=== PATIENT | female | born 2000 | race Caucasian/White ===

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

== ENCOUNTER 2023-01-12 16:24 | Outpatient (REF) | payer BC, MEDICAID, SELFPAY ==
[2023-01-14 15:06] LABS: Chlamydia Result Negative (Negative); GC Result Negative (Negative)
== END 2023-01-12 16:25 | disposition home or self-care (01) ==
LOC: LBN 16:24
PROVIDERS: PCP Student in an Organized Health Care Education/Training Program; Visit Provider Advanced Practice Midwife
DX: N94.89 Other specified conditions associated with female genital organs and menstrual cycle (principal); B37.31 Acute candidiasis of vulva and vagina
CPT/HCPCS: 87491; 87591; 87480; 87510; 87660

== ENCOUNTER 2023-10-13 15:43 | Emergency (ER) | payer OTHER, SELFPAY ==
[2023-10-13 15:44] VITALS: BP 142/97; PULSE 93; RESP 16; TEMP 36.3; O2SAT 98
--- NOTE | 2023-10-13 15:45 | ED.GENADUL_ITS ---
Discharge Plan Disposition Patient Disposition: Home Discharge Details Clinical Impression: Acute right ankle pain Primary Care Provider: Unknown,Unknown ED Provider: Shiraz Carrillo Home Meds and New Rx's Prescriptions: Continued L norgest/e.estradiol-e.estrad 0.15 mg-30 mcg (84)/10 mcg (7) tablets,dose pack,3 month 1 tab PO Q24H Qty: 182 3RF sertraline 50 mg tablet See Rx Instructions .ROUTE .COMPLEX Qty: 45 3RF Dose Instruction: TAKE ONE AND ONE-HALF TABLETS BY MOUTH EVERY DAY Rx Instructions: TAKE ONE AND ONE-HALF TABLETS BY MOUTH EVERY DAY glycopyrrolate 1 mg tablet 2 mg PO DAILY Patient Comments: TAKE ONE TABLET BY MOUTH EVERY DAY FOR 7 DAYS; MAY INCREASE TO ONE TABLET BY MOUTH TWO TIMES A DAY AFTER Discharge Instructions Instructions: Ankle Sprain ED Additional Instructions: You were seen in the emergency department for your ankle pain. Your x-ray showed no sign of any fractures. As we discussed please rest your ankle and elevated for the next several days. Please ice your right ankle for 20 minutes on 20 and soft for the next day. You are receiving a work note. As we discussed if you cannot move your ankle if you develop any blue color changes in your foot or if you have any sudden increasing pain please return immediately to the emergency department. Otherwise please follow-up with your primary care provider next week as needed. As we discussed if you develop worsening pain next week you may or may not require an MRI to assess for any ligamentous injuries. You are receiving a walking boot. You may bear weight as tolerated on your right lower extremity. For your pain please take medications as follows: 1. Take acetaminophen (Tylenol), 1,000 mg (two 500 mg tabs) every 6 hours [2. Take ibuprofen (Advil), 400 mg every 6 hours.] Stand Alone Forms: Work Release Discharge Data Discharge Date/Time-TO BE ENTERED AT DEPARTURE: 10/13/23 17:29 HPI General Date/Time Provider Initiated Documentation: 10/13/23 15:45 . HPI Narrative: [facility] This is an overall very well-appearing afebrile not tachycardic 23-year-old female with a remote prior right ankle fracture with history physical and x-rays most consistent with right ankle sprain for which patient will receive instructions for RICE and weightbearing as tolerated in a walking boot per patient request. No pain out of proportion to suggest necrotizing soft tissue infection. No proximal tibial pain to suggest Maisonneuve injury. No midfoot instability to suggest Lisfranc injury. No lateral foot tenderness to suggest Winn fracture. Foot warm well-perfused I am not concerned for critical limb ischemia so do not feel that the patient requires a CT angiogram of her lower extremity. No fevers nor any significant erythema to suggest septic joint. No erythema to suggest cellulitis. No fluctuance to suggest abscess. Patient and I discussed return indications including any decreased circulation color changes in her foot or any significant increasing pain. We otherwise discussed primary care follow-up next week as needed. I advised her that she may or may not require an MRI if her symptoms did not steadily improve. She understood her return indications and was discharged with empiric trial of expectant outpatient management. HPI This is a previously healthy 23-year-old female up-to-date with immunizations arrived to the emergency department via private vehicle in the setting of right ankle pain. 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 She was outside at approximately 3 PM and she stepped in a divot in the play yard. She does note that 3 years ago she fractured her right ankle. She says that today she forcefully inverted her right ankle. She did not strike her head. She did not lose consciousness. She has not yet taken any analgesia. She denies any preceding chest pain syncope nausea vomiting dysuria and frequency. Exam General: Well-appearing in no acute distress speaking in complete sentences. Head: Normocephalic, atraumatic. Eye:[Pupils equal, round reactive to light.] Extraocular eye movements intact. No conjunctival injection. No scleral icterus. Ear, nose, mouth, throat: Grossly normal inspection. Normal voice, handling secretions normally. Neck: Trachea midline. Cardiovascular: Well-perfused distal extremities. Respiratory: Nonlabored respiration. Gastrointestinal: Nondistended abdomen. Musculoskeletal: Right foot warm well-perfused 2+ PT and DP pulses. Cap refill less than 2 seconds in the right toes. Sensation intact in the dorsal webspace between the first and second toes. 3 out of 5 dorsi and plantarflexion strength limited secondarily to pain. No proximal right lower extremity tibial tenderness. No fluctuance. No erythema. No midfoot instability. No lateral foot tenderness. Skin: Normal for age and race, grossly normal temperature and turgor. No acute rash. Neurologic: Alert and appropriate, no apparent acute deficits. Psychiatric: Mood and manner are appropriate. Grooming and personal hygiene are appropriate. Related Data Home Medications ?Medication ?Instructions ?Recorded ?Confirmed L norgest/E estradiol-E estrad 1 tab PO Q24H #182 dose pk 08/31/23 10/13/23 0.15 mg-30 mcg (84)/10 mcg(7) tabs,3mos sertraline 50 mg tablet See Rx Instructions .Route 09/13/23 10/13/23 .COMPLEX #45 tabs glycopyrrolate 1 mg tablet 2 mg PO DAILY 10/13/23 10/13/23 Previous Rx's ?Medication ?Instructions ?Recorded L norgest/E estradiol-E estrad 1 tab PO Q24H #182 dose pk 08/31/23 0.15 mg-30 mcg (84)/10 mcg(7) tabs,3mos sertraline 50 mg tablet See Rx Instructions .Route 09/13/23 .COMPLEX #45 tabs Allergies Allergy/AdvReac Type Severity Reaction Status Date / Time No Known Allergies Allergy Verified 10/13/23 15:49 General FRANDY: 4 Medical Decision Making Quality:SDOH Health Related Social Needs: No Data to Display PFSH All Active Problems (Updated 10/13/23 @ 17:27 by Shiraz Carrillo MD) Acute right ankle pain (Acute) Depression (Chronic) Oral contraceptive use (Acute) Anxiety (Acute 03/06/14) Medical History COVID-19 + PCR 05/20/20 Obsessive-compulsive disorder, unspecified (12/02/16) clothes orgnaized, cell phone must be at 100% - fluox - 12/15 Concussion with no loss of consciousness (12/02/16) hit in head by soccer ball 12/15 ADD (attention deficit disorder) (12/04/13) did not respond to stimulants- perhaps inattention due to other issues- learning problem or anxiety 04/15 Inattention school problems- IEP Anxiety treat 12/15 Family History Mother No problems noted. Father Essential hypertension Hyperlipidemia Social History Smoking/Tobacco Use Status: Never Second Hand Exposure: No Smoking risk assessment performed?: Yes Alcohol Intake: never Drug use: Never Substance use type: does not use Adopted: No Household members: other Details: lives with step-sister and step-sister's boyfriend Housing: house Education Level: college Details: online freshman in college Pets and animals: Yes Pets and animals: cat(s) and dog(s) Sexually active: Yes Current gender identity: female What type of physical activity do you participate in: walking Seatbelt use: always Do you feel safe at home: Yes Do you feel safe in your relationship?: Yes Female Reproductive History Menstrual Duration of menses: 6-7 days control method: pills and condoms History History 0 Para Hx # Term Pregnancies Multiple births Hx # Pregnancies Ectopic pregnancies AB induced Hx Number of Living Children AB spontaneous
--- NOTE | 2023-10-13 16:18 | DI.RAD_ITS ---
Exam(s) XR ANKLE RT COMPLETE EXAM: XR ANKLE RT COMPLETE CLINICAL HISTORY: Right ankle pain. TECHNIQUE: 2D digital imaging was performed. COMPARISON: CR XR ANKLE RT COMPLETE from 11/09/2019 FINDINGS: 3 views There is swelling of the lateral aspect of the ankle but no evidence of acute fracture nor widening o f the ankle mortise. The talar dome appears unremarkable. Malleoli unremarkable. No osseous lesion s evident. No degenerative changes seen in the tibiotalar and subtalar joints. No inferior calcanea l spur. IMPRESSION: Lateral soft tissue swelling. No acute osseous findings. DATA REPOSITORY: RADIATION DOSE DELIVERED:
[2023-10-13 16:39] VITALS: BP 126/71; PULSE 81; RESP 14; TEMP 36.3; O2SAT 98
[2023-10-13] MEDS: Acetaminophen 500 MG TAB 1000 MG PO (17:30)
[2023-10-13] MEDS: Ibuprofen 600 MG TAB PO (17:30)
--- NOTE | 2023-10-16 15:33 | NUR.NOTE ---
Access chart to get billing information for [facility] requisitions. Nursing Note:
== END 2023-10-13 17:29 | disposition home or self-care (01) ==
PROVIDERS: Emergency Provider Emergency Medicine
DX: M25.571 Pain in right ankle and joints of right foot (principal); Y99.0 Civilian activity done for income or pay; W18.49XA Other slipping, tripping and stumbling without falling, initial encounter
CPT/HCPCS: 29515; 81025; 99284; 73610; 99283

== ENCOUNTER 2023-11-05 01:17 | Outpatient (CLI) | payer BC, SELFPAY ==
[2023-11-05 15:56] LABS: Hemoglobin A1C 5.1 % (<5.7)
[2023-11-05 16:16] LABS: ALT 41 U/L (14-59); AST 19 U/L (15-37); Albumin 3.6 g/dL (3.4-5.0); Alkaline Phosphatase 92 U/L (46-116); BUN 19 mg/dL (7-18); Bilirubin, Total 0.21 mg/dL (0.2-1.0); Calcium 8.8 mg/dL (8.5-10.1); Calculated LDL 180 mg/dL (<100); Chloride 104 mmol/L (98-107); Cholesterol 251 mg/dL (<200); Glucose 122 mg/dL (74-106); HDL Cholesterol 41 mg/dL (40-60); Potassium 3.6 mmol/L (3.5-5.1); Sodium 139 mmol/L (136-145); Total Protein 7.4 g/dL (6.4-8.2); Triglyceride 153 mg/dL (<150)
--- NOTE | 2023-11-11 12:21 | W.NUTRFU ---
Date of service: 11/11/23 Time of Service: 12:00
== END 2023-11-05 01:18 | disposition home or self-care (01) ==
PROVIDERS: PCP Nurse Practitioner Family; Visit Provider Nurse Practitioner Family
DX: E66.9 Obesity, unspecified (principal)
CPT/HCPCS: 36415; 80053; 80061; 83036

== ENCOUNTER 2023-11-30 18:52 | Outpatient (REF) | payer BC, SELFPAY | END 2023-11-30 18:53 | disposition home or self-care (01) | LOC: NCHCN 18:52 | PROVIDERS: PCP Nurse Practitioner Family; Visit Provider Physician Assistant | DX: J02.9 Acute pharyngitis, unspecified (principal); B95.4 Other streptococcus as the cause of diseases classified elsewhere | CPT/HCPCS: 87077; 87070 ==

== ENCOUNTER 2024-01-19 17:53 | Outpatient (REF) | payer BC, SELFPAY ==
--- NOTE | 2024-01-19 15:50 | PAPFT_PTH ---
PATIENT: Barb Gonzalez LOC: [facility] U#:[id number] AGE/SX: 23/F ROOM: RE01/19/[address]: Marietta Romero MD : 2000 BED: DIS: 01/19/2024 SPEC #: [id number] RECD: 01/19/24 17:54 STATUS: BELKYS REShameka #: [id number] GIFTY: 01/19/24 15:[address]: Marietta Romero DEPT: [facility] Cytology RECD BY: Anjana Marroquin ENTERED: 01/19/24 17:55 SP TYPE: PAPFT KVNG DR: SARIAH Arias Tissues: 1 - CX/ENDOCX FOR PAP SMEARS Procedures: PAP THIN PREP/[facility] Screening Comments: [id number]
== END 2024-01-19 17:54 | disposition home or self-care (01) ==
LOC: LBN 17:53
PROVIDERS: PCP Nurse Practitioner Family; Visit Provider Obstetrics & Gynecology
DX: Z01.419 Encounter for gynecological examination (general) (routine) without abnormal findings (principal)
CPT/HCPCS: 88142

== ENCOUNTER 2024-03-16 01:35 | Outpatient (CLI) | payer OTHER, MEDICAID, SELFPAY ==
--- NOTE | 2024-03-16 10:16 | TELEFU_ITS ---
Date of service: 03/16/24 Time of Service: 09:30 Nutrition Note NOTE: Completed referred nutrition appt over the phone this morning per Barb's request due to her schedule - unable to get out of work long enough for in- person visit. Main concerns that generated the referral are weight managment , high LDL of 180 and elevated random glucose. Barb works at a [employer] - finds there are many days she doesn't get time to eat a significant lunch and often come home exhasuted and might just snack instead of cook a meal (she shops/cooks for one). She also feels healthy food can get expensive. She states she will eat anything - not a picky eater. Her exercise is walking the dog currently. Recommended macro goals : 1800kcals, 100-135g protein, 180g total CHO, and 60- 70g fat. Recommend no more than 30g added sugar per day and at least 25g fiber per day to come out of total carb amount. We reviewed that skipping meals is not helpful for healthy weight loss as muscle mass becomes jeopardized which could lower metabolism. Suggested she step up her activity with some exercise and work on some strength training -resistant bands, light kettle wade workout, modified body weight exercises, etc... We reviewed importance of meeting protein goal while targets for CHO and fat above result in kcal deficit. suggested for LDL to focus on lowering added sugar, refined starch and saturated fat intake. Suggested getting a good deal of her protein needs met with plant protein. She takes no supplements - suggested MVI and extra vitamin D3 at 2000-4000IU per day (more in winter less in summer). We discussed meal planning for 3 meals and 0-2 planned snacks and working on being proactive with getting ready for meals and trouble shooting lack of time with easy to eat items (hard cooked eggs, meat sticks, cut up vieggies, roasted chickpeas and more... she has my info and knows she can email/call with any direct questions or need for more support,details, resources. Time Spent in Nutritional Counseling and Treatment: 20 minutes
== END 2024-03-16 01:36 | disposition home or self-care (01) ==
LOC: DS 01:35
PROVIDERS: PCP Nurse Practitioner Family; Visit Provider Dietitian, Registered
DX: Z71.3 Dietary counseling and surveillance (principal)
CPT/HCPCS: 00123; 97802

== ENCOUNTER 2024-03-27 01:47 | Outpatient (CLI) | payer OTHER, MEDICAID, SELFPAY ==
--- NOTE | 2024-03-27 06:15 | DI.US_ITS ---
Exam(s) US SOFT TISSUE HEAD OR NECK EXAM: US SOFT TISSUE HEAD OR NECK CLINICAL HISTORY: globus sensation,r09.a2, FOREIGN BODY SENSATION. TECHNIQUE: Ultrasound was performed using standard protocol. COMPARISON: No exams were available for comparison FINDINGS: Sonographic assessment utilizing grayscale and color Doppler imaging was performed and targeted to th e area of clinical concern. There are several sonographically normal appearing lymph nodes seen in the neck bilaterally. The lar gest is on the left measures 2.5 x 1.1 x 1.4 cm. No sonographic suspicious masses are seen. IMPRESSION: 1. No sonographically suspicious masses are seen. 2. Bilateral sonographically normal appearing lymph nodes are seen. The largest is on the left and m easures 2.5 x 1.1 x 1.4 cm. DATA REPOSITORY:
== END 2024-03-27 02:07 ==
LOC: DI 01:47
PROVIDERS: PCP Nurse Practitioner Family; Visit Provider Nurse Practitioner Family
DX: R09.A2 Foreign body sensation, throat (principal)
CPT/HCPCS: 76536

== ENCOUNTER 2024-03-31 00:41 | Outpatient (CLI) | payer MEDICAID, SELFPAY ==
[2024-03-31 08:47] LABS: Abs Immature Grans 0.02 10^3/uL (0.0-0.06); Absolute Basophil Count 0.02 10^3/uL (0.0-0.2); Absolute Eosinophil Count 0.11 10^3/uL (0.0-0.7); Absolute Lymphocyte Count 3.91 10^3/uL (1.2-3.4); Absolute Monocyte Count 0.39 10^3/uL (0.1-0.8); Absolute Neutrophil Count 3.35 10^3/uL (1.2-6.7); Basophils % 0.3 %; Eosinophils % 1.4 %; HCT 42.5 % (36.0-46.0); HGB 14.7 g/dL (11.2-15.7); Immature Grans % 0.3 %; Lymphocytes % 50.1 %; MCH 29.2 pg (27.0-33.0); MCHC 34.6 % (32.0-36.0); MCV 85 fL (80-95); MPV 10.3 fL (8.0-11.0); Neutrophils % 42.9 %; Platelet Count 324 10^3/uL (130-400); RBC 5.03 10^6/uL (3.93-5.22); RDW 12.3 % (11.7-14.6); RDW-SD 37.6 fL
[2024-03-31 09:39] LABS: ALT 49 U/L (14-59); AST 30 U/L (15-37); Albumin 3.4 g/dL (3.4-5.0); Alkaline Phosphatase 119 U/L (46-116); Anion Gap 11.7 mmol/L (3-11); BUN 11 mg/dL (7-18); Bilirubin, Total 0.36 mg/dL (0.2-1.0); CO2 26.3 mmol/L (21.0-32.0); Calcium 9.4 mg/dL (8.5-10.1); Chloride 105 mmol/L (98-107); Glucose 113 mg/dL (74-106); Potassium 3.7 mmol/L (3.5-5.1); Sodium 143 mmol/L (136-145); TSH (W/Ref FT4) 2.43 uIU/mL (0.36-3.74); Total Protein 7.8 g/dL (6.4-8.2)
== END 2024-03-31 00:42 | disposition home or self-care (01) ==
PROVIDERS: PCP Nurse Practitioner Family; Visit Provider Nurse Practitioner Family
DX: R09.A2 Foreign body sensation, throat (principal); R53.83 Other fatigue; F41.1 Generalized anxiety disorder
CPT/HCPCS: 36415; 80053; 82306; 84443; 85025

== ENCOUNTER 2024-04-11 16:49 | Emergency (ER) | payer OTHER, MEDICAID, SELFPAY ==
[2024-04-11] VITALS (31 sets, daily range): BP systolic 110–146; BP diastolic 64–85; PULSE 84–117; RESP 19–30; TEMP 37.1–37.7; O2SAT 97–100
--- NOTE | 2024-04-11 16:45 | RT.EKG_ITS ---
APPROVED REPORT Exam: Resting ECG Reason for Exam: chest pain Patient Location: E HR:106 bpm ECG Measurements Heart Rate 106 AXIS AK 129 P 40 QRSd 97 QRS 54 QT 334 T 5 QTc 443 Conclusion Sinus tachycardia...rate> [address] segment or T wave abnormalities to suggest occlusive [place]
--- NOTE | 2024-04-11 17:01 | W.ED.GENAD ---
Discharge Plan Disposition Patient Disposition: Home Condition: Stable Discharge Details Clinical Impression: Acute chest wall pain Primary Care Provider: Yamel Linares ED Provider: Sophia Nunes Home Meds and New Rx's Prescriptions: No Action omeprazole 20 mg capsule,delayed release(DR/EC) 20 mg PO DAILY Qty: 90 0RF sertraline 100 mg tablet 100 mg PO DAILY Qty: 90 3RF L norgest/e.estradiol-e.estrad 0.15 mg-30 mcg (84)/10 mcg (7) tablets,dose pack,3 month 1 tab PO Q24H Qty: 182 4RF Rx Instructions: Take continuously by skipping the placebo pills and starting the next pack right away. oxybutynin chloride 5 mg tablet extended release 24hr 10 mg PO DAILY Discharge Instructions Instructions: Costochondritis Additional Instructions: At this time no evidence for any cardiac abnormality, negative for influenza or COVID no evidence for clots in your lungs,. Chest x-ray is within normal limits. May have a viral URI. There could also be some inflammation in the soft tissues and ligaments in between your lungs. Follow up with primary care provider in 3-5 days. Return to ED sooner if any worsening or concerns. Please take Tylenol or Ibuprofen with food every 4-6 hours as needed for pain and swelling. Thank you for allowing us to care for you today. Stand Alone Forms: Work Release Referrals: Yamel Linares, HOME HEALTH NURSE [facility]ICENS[facility]ACTICAL [Primary Care Provider] - 3 days HPI General Mode of arrival: ambulatory. Date/Time Provider Initiated Documentation: 04/11/24 16:55. Limitations to Documentation: no limitations. Information obtained by: patient, RN notes reviewed and old records reviewed. HPI Narrative: 24-year-old female presents to the ER accompanied by her mother with a chief complaint of chest pains, shortness of breath. Patient recently had flu a and March 27. Patient does endorse vaping, she is on control. Denies any recent long trips in a car plane. She is slightly tachycardic upon arrival at 10 1-1 06 lungs are clear to auscultation bilaterally. She does report right sided chest pain which radiates around to her right lower chest. Denies any nausea vomiting diarrhea. She does work at a daycare. Denies any productive cough. Denies any swelling in her legs or calf pain. Other past medical history include obesity and hyperlipidemia, ADHD. Related Data Home Medications ?Medication ?Instructions ?Recorded ?Confirmed L norgest/E estradiol-E estrad 1 tab PO Q24H #182 dose pk 01/19/24 04/11/24 0.15 mg-30 mcg (84)/10 mcg(7) tabs,3mos oxybutynin chloride 5 mg 10 mg PO DAILY 02/17/24 04/11/24 tablet,extended release 24 hr sertraline 100 mg tablet 100 mg PO DAILY #90 tabs 02/17/24 04/11/24 omeprazole 20 mg capsule,delayed 20 mg PO DAILY #90 caps 03/22/24 04/11/24 release Previous Rx's ?Medication ?Instructions ?Recorded L norgest/E estradiol-E estrad 1 tab PO Q24H #182 dose pk 01/19/24 0.15 mg-30 mcg (84)/10 mcg(7) tabs,3mos sertraline 100 mg tablet 100 mg PO DAILY #90 tabs 02/17/24 omeprazole 20 mg capsule,delayed 20 mg PO DAILY #90 caps 03/22/24 release Allergies Allergy/AdvReac Type Severity Reaction Status Date / Time No Known Allergies Allergy Verified 04/11/24 18:54 General Stated Complaint: Chest Pain FRANDY: 3 Review of Systems All systems reviewed & are unremarkable except as noted in HPI and below Cardiovascular Cardiovascular: Reports chest pain and Reports dyspnea Respiratory Respiratory: Denies hemoptysis and Reports dyspnea Exam Narrative Exam Narrative: Constitutional: Alert and oriented x3. Appears stated age. Normal body habitus. Head: Normocephalic, no trauma. Eyes: Pupils PERRL, Red reflex noted, EOM's intact. Eyelids symmetrical without lesions, discharge, or swelling. ENT: Bilateral TM's WNL, External ear normal to inspection, no mastoid TTP, swelling, or erythema, Nasal turbinates WNL, no nasal discharge. Normal dentition, Posterior pharynx WNL, no exudate. Chest: RRR, Normal S1, S2, distal pulses intact. Resp: Lungs clear to auscultation bilaterally, no wheezes, rales, or rhonchi. Abdomen: Soft, non-distended, Normoactive bowel sounds all 4 quads. Musculoskeletal: Normal gait, Moves all 4 extremities without difficulty. Skin: No suspicious rashes or lesions. Capillary refill less than 2 sec. Neurologic: Cranial nerves II-XII intact. Alert and oriented x 3. Motor: No deficits noted. Sensory: Intact bilaterally all 4 extremities. Hematologic/Lymphatic: No ecchymosis, no lymphadenopathy. Course Vital Signs Vital signs: Vital Signs Temperature 37.1 C 04/11/24 16:53 Pulse 106 H 04/11/24 16:53 Respiratory Rate 22 04/11/24 16:53 Blood Pressure 141/80 H 04/11/24 16:53 Temperature 37.1 C 04/11/24 16:53 Temperature Source Oral 04/11/24 16:53 Pulse 106 H 04/11/24 16:53 Respiratory Rate 22 04/11/24 16:53 Blood Pressure 141/80 H 04/11/24 16:53 Blood Pressure Position Sitting 04/11/24 16:53 Oxygen Delivery Method Room Air 04/11/24 16:53 Oxygen Flow Rate 0 04/11/24 16:53 Medical Decision Making 24-year-old female presents to the ER accompanied by her mother with a chief complaint of chest pains, shortness of breath. Patient recently had flu a and March 27. Patient does endorse vaping, she is on control. Denies any recent long trips in a car plane. She is slightly tachycardic upon arrival at 11 29- 06 lungs are clear to auscultation bilaterally. She does report right sided chest pain which radiates around to her right lower chest. Denies any nausea vomiting diarrhea. She does work at a daycare. Denies any productive cough. Denies any swelling in her legs or calf pain. Other past medical history include obesity and hyperlipidemia, ADHD. EKG was reviewed by Dr. Gracie Mitchell ER attending, no old EKG available for review, no significant ST depression or elevation to suggest ischemia, sinus tachycardia. Rapid flu COVID ordered, chest x-ray. CBC CMP D-dimer rule out PE, differential diagnose includes not limited to costochondritis, chest wall pain, PE, pneumonia less likely CAD patient is at low risk no significant past medical history however she does have a history of lipidemia and she does vape. Workup is largely unremarkable, white blood cell count is 12.13, percent neutrophils 8.70 D-dimer within normal limits 241 sodium 139 potassium 3.4 glucose 108 initial troponin within normal limits. Negative onpiz-ub-tafw flu or COVID. Chest x-ray shows no acute abnormality no pneumonia. I do suspect costochondritis or chest wall strain due to the recent URI. Will discharge home with home care and strict return instructions. This text was generated using [employer] system, please disregard any oddities of phrase or misspellings. Medical Records Medical records reviewed: Yes I reviewed the patient's medical records. Imaging Data Radiologic Study: Imaging: X-Ray Radiologist's impression: FINDINGS: HEART: Normal size. Aorta: Not dilated. PULMONARY VASCULATURE: Normal. MEDIASTINUM: Unremarkable. LUNGS: Clear. PLEURAL SPACE: No pleural effusion or pneumothorax. BONE:Unremarkable for age. SOFT TISSUES: Unremarkable. IMPRESSION: No acute abnormality. Lab Data Lab results reviewed: Yes I reviewed the patient's lab results. Labs: Laboratory Tests Range/Units 04/11/24 17:31 WBC (4.4-10.8) 10^3/uL 12.13 H RBC (3.93-5.22) 10^6/uL 4.78 Hgb (11.2-15.7) g/dL 13.9 Hct (36.0-46.0) % 40.2 MCV (80-95) fL 84 MCH (27.0-33.0) pg 29.1 MCHC (32.0-36.0) % 34.6 RDW (11.7-14.6) % 12.9 Plt Count (130-400) 10^3/uL 298 MPV (8.0-11.0) fL 10.5 Immature Gran % % 0.2 Neutrophils % % 71.7 Lymphocytes % % 19.7 Monocytes % % 7.2 Eosinophils % % 0.8 Basophils % % 0.4 Nucleated RBC % (0.0-0.3) % 0.0 Absolute Neutrophils (1.2-6.7) 10^3/uL 8.70 H Absolute Lymphocytes (1.2-3.4) 10^3/uL 2.39 Absolute Monocytes (0.1-0.8) 10^3/uL 0.87 H Absolute Eosinophils (0.0-0.7) 10^3/uL 0.10 Absolute Basophils (0.0-0.2) 10^3/uL 0.05 D-Dimer (<500) ng/mlFEU 241 Sodium (136-145) mmol/L 139 Potassium (3.5-5.1) mmol/L 3.4 L Chloride (98-107) mmol/L 106 Carbon Dioxide (21.0-32.0) mmol/L 26.5 Anion Gap (3-11) mmol/L 6.5 BUN (7-18) mg/dL 15 Creatinine (0.55-1.02) mg/dL 0.9 Est GFR (CKD-EPI 2020) (mL/min/1.73m2) 92.70 Glucose (74-106) mg/dL 108 H Calcium (8.5-10.1) mg/dL 9.1 Total Bilirubin (0.2-1.0) mg/dL 0.33 AST (15-37) U/L 17 ALT (14-59) U/L 41 Alkaline Phosphatase (46-116) U/L 99 Troponin I (<or=51) ng/L < 4 Total Protein (6.4-8.2) g/dL 7.5 Albumin (3.4-5.0) g/dL 3.8 Quality:[facility] Health Related Social Needs: No Data to Display PFSH All Active Problems (Updated 04/11/24 @ 19:12 by Sophia Nunes NP) Acute chest wall pain (Acute) Globus sensation (Acute) Hyperlipidemia (Acute) Generalized anxiety disorder (Chronic) Major depressive disorder, recurrent (Chronic) ADD (attention deficit disorder) (Chronic) did not respond to stimulants OCD (obsessive compulsive disorder) (Chronic) Obesity (BMI 30-39.9) (Chronic) Generalized hyperhidrosis (Chronic) Surgical History No pertinent past surgical history Family History Mother Depression Hyperlipidemia Father Hyperlipidemia Diabetes Hypertension Sister Congenital heart disease Brother No problems noted. Maternal Grandfather Diabetes Hyperlipidemia Hypertension Lung cancer Maternal Grandmother , in her 80s Breast cancer late 80s Hyperlipidemia Hypertension Paternal Grandfather Heart disease Paternal Grandmother Hypertension Social History Smoking/Tobacco Use Status: Never Second Hand Exposure: No Smoking risk assessment performed?: Yes Alcohol Intake: never Drug use: Never Substance use type: does not use Adopted: No Caregiver/Support person: No Foster care: No Household members: none Housing: house Number of Children: 0 number of grandchildren: 0 Communication Needs: None Education Level: college Details: online freshman in college Do you need help understanding health information?: Never current occupation: Childcare Provider Pets and animals: Yes Pets and animals: cat(s) and dog(s) Sexually active: Yes Do you think of yourself as: straight/heterosexual Current gender identity: female What is your relationship status?: never How often do you talk on the phone with friends or family?: three or more times per week How often do you get together with friends or relatives?: three or more times per week How often do you attend denominational or presybeterian services?: 1-3 times per year Do you belong to any clubs or organized social groups?: no Panel score (0-1 are the most socially isolated patients): 1 What type of physical activity do you participate in: walking and bicycling Duration: 45-60 minutes/day Frequency: 1-2 times per week Shea/Restorationism: Synagogue Special shea needs: No Agree to transfusion: Yes Seatbelt use: always Helmet use: Yes Helmet use: always Drive intox or ride w/intox customer service driver: No Firearms in home: No Do you feel safe at home: Yes Do you feel safe in your relationship?: Yes Female Reproductive History Menstrual Duration of menses: 6-7 days control method: pills and condoms History History 0 Para Hx # Term Pregnancies Multiple births Hx # Pregnancies Ectopic pregnancies AB induced Hx Number of Living Children AB spontaneous
[2024-04-11 17:46] LABS: Abs Immature Grans 0.03 10^3/uL (0.0-0.06); Absolute Basophil Count 0.05 10^3/uL (0.0-0.2); Absolute Lymphocyte Count 2.39 10^3/uL (1.2-3.4); Absolute Monocyte Count 0.87 10^3/uL (0.1-0.8); Basophils % 0.4 %; Eosinophils % 0.8 %; HCT 40.2 % (36.0-46.0); HGB 13.9 g/dL (11.2-15.7); Immature Grans % 0.2 %; Lymphocytes % 19.7 %; MCH 29.1 pg (27.0-33.0); MCHC 34.6 % (32.0-36.0); MCV 84 fL (80-95); MPV 10.5 fL (8.0-11.0); Monocytes % 7.2 %; Neutrophils % 71.7 %; Platelet Count 298 10^3/uL (130-400); RBC 4.78 10^6/uL (3.93-5.22); RDW 12.9 % (11.7-14.6); RDW-SD 39.1 fL; WBC 12.13 10^3/uL (4.4-10.8)
--- NOTE | 2024-04-11 17:58 | DI.RAD_ITS ---
Exam(s) XR CHEST 2V PA LATERAL EXAM: XR CHEST 2V PA LATERAL CLINICAL HISTORY: Cough, Chest pain TECHNIQUE: 2D digital imaging was performed. Two views. COMPARISON: No exams were available for comparison FINDINGS: HEART: Normal size. Aorta: Not dilated. PULMONARY VASCULATURE: Normal. MEDIASTINUM: Unremarkable. LUNGS: Clear. PLEURAL SPACE: No pleural effusion or pneumothorax. BONE:Unremarkable for age. SOFT TISSUES: Unremarkable. IMPRESSION: No acute abnormality. DATA REPOSITORY: RADIATION DOSE DELIVERED:
[2024-04-11 18:01] LABS: ALT 41 U/L (14-59); AST 17 U/L (15-37); Albumin 3.8 g/dL (3.4-5.0); Alkaline Phosphatase 99 U/L (46-116); Anion Gap 6.5 mmol/L (3-11); BUN 15 mg/dL (7-18); Bilirubin, Total 0.33 mg/dL (0.2-1.0); CO2 26.5 mmol/L (21.0-32.0); CREATININE 0.9 mg/dL (0.55-1.02); Calcium 9.1 mg/dL (8.5-10.1); Chloride 106 mmol/L (98-107); Glucose 108 mg/dL (74-106); Potassium 3.4 mmol/L (3.5-5.1); Sodium 139 mmol/L (136-145); Total Protein 7.5 g/dL (6.4-8.2)
[2024-04-11 18:07] LABS: Troponin I < 4 ng/L (<or=51)
[2024-04-11 18:26] LABS: D-Dimer 241 ng/mlFEU (<500)
[2024-04-11] MEDS: Inhaler, Assist Device 1 EACH MC (19:13)
[2024-04-11] MEDS: Ketorolac 15 MG/ML VIAL IVP (19:13)
[2024-04-11] MEDS: Albuterol HFA 8 GM 60 PUFF INH IH (19:13)
[2024-04-11 19:34] LABS: Troponin I < 4 ng/L (<or=51)
== END 2024-04-11 19:52 | disposition home or self-care (01) ==
PROVIDERS: Emergency Provider Registered Nurse Emergency; PCP Nurse Practitioner Family
DX: R07.89 Other chest pain (principal); R06.02 Shortness of breath; F17.290 Nicotine dependence, other tobacco product, uncomplicated
CPT/HCPCS: 36415; 80053; 81025; 87426; 93005; 96374; 99284; 71046; 84484; 85025; 85379; 93010; J1885

== ENCOUNTER 2024-11-27 15:58 | Outpatient (REF) | payer OTHER, SELFPAY | END 2024-11-27 15:59 | disposition home or self-care (01) | LOC: LBN 15:58 | PROVIDERS: PCP Nurse Practitioner Family; Visit Provider Nurse Practitioner Family | DX: R10.9 Unspecified abdominal pain (principal); N89.8 Other specified noninflammatory disorders of vagina; J02.9 Acute pharyngitis, unspecified | CPT/HCPCS: 87070; 87086; 87480; 87510; 87660 ==

== ENCOUNTER 2024-12-14 18:10 | Outpatient (REF) | payer OTHER, SELFPAY ==
[2024-12-15 21:04] LABS: Campylobacter PCR Negative (Negative); Shiga Toxin PCR Negative (Negative); Shigella/Enteroinvasive Ecoli Negative (Negative)
== END 2024-12-14 18:11 | disposition home or self-care (01) ==
LOC: LBN 18:10
PROVIDERS: PCP Nurse Practitioner Family; Visit Provider Nurse Practitioner Family
DX: R19.7 Diarrhea, unspecified (principal)
CPT/HCPCS: 84311; 87505; 82272

== ENCOUNTER 2025-01-03 08:26 | Day surgery (SDC) | payer OTHER, SELFPAY ==
[2025-01-03] MEDS: Lactated Ringers 1,000 ML 80 ML IV (09:02)
[2025-01-03 09:14] VITALS: BP 130/84; PULSE 86; RESP 16; TEMP 36.2; O2SAT 99
--- NOTE | 2025-01-03 10:02 | W.ANESPRE ---
General Info Date of Service Date Performed: 01/03/25 Height: 5 ft 4 in Weight: 93.4 kg Body Mass Index (BMI): 35.3 Surgical Procedure: Operation Date: 01/03/25 09:50 Proposed Procedure Side Surgeon p Colonoscopy Lani Short MD Meds Allergies and Home Medications Allergies Allergy/AdvReac Type Severity Reaction Status Date / Time No Known Allergies Allergy Verified 01/03/25 09:18 Home Medication Medication Instructions Recorded L norgest/E estradiol-E estrad 1 tab PO Q24H #182 dose pk 01/19/24 0.15 mg-30 mcg (84)/10 mcg(7) tabs,3mos oxybutynin chloride 5 mg 10 mg PO DAILY 02/17/24 tablet,extended release 24 hr sertraline 100 mg tablet 100 mg PO DAILY #90 tabs 02/17/24 omeprazole 20 mg capsule,delayed 20 mg PO DAILY #90 caps 06/21/24 release bisacodyl 5 mg tablet,delayed 5 mg PO ONCE Colonoscopy Bowel 01/01/25 release Prep #4 tabs polyethylene glycol 3350 17 238 g PO ONCE #238 grams 01/01/25 gram/dose oral powder Current Visit Medications: Current Medications Generic Name Dose Route Start Last Admin Trade Name Freq PRN Reason Stop Dose Admin Ringer's Solution 1,000 mls @ 80 mls/hr 01/03/25 06:00 01/03/25 09:02 IV 01/03/25 23:59 80 mls/hr INFUSION TRA Administration IV Miscellaneous Supplies 1 each 01/03/25 06:00 Iv Access IV 01/03/25 23:59 DIRECTED TRA Sodium Chloride 0 ml 01/03/25 06:00 Normal Saline Flush 10 Ml Syr IV 01/03/25 23:59 PRN PRN Sodium Chloride 0 ml 01/03/25 06:00 Normal Saline 10 Ml Vial IJ 01/03/25 23:59 DIRECTED PRN Sterile Water 0 ml 01/03/25 06:00 Water,Injection,Sterile 10 Ml Vial IJ 01/03/25 23:59 DIRECTED PRN PFSH Active Problems Active Problems: Problem Status Onset Code Positive fecal occult blood test Acute R19.5 Diarrhea Acute R19.7 Globus sensation Acute R09.A2 Hyperlipidemia Acute E78.5 Generalized anxiety disorder Chronic F41.1 Major depressive disorder, recurrent Chronic F33.9 ADD (attention deficit disorder) Chronic F98.8 OCD (obsessive compulsive disorder) Chronic F42.9 Obesity (BMI 30-39.9) Chronic E66.9 Generalized hyperhidrosis Chronic R61 Surgical History Surgical History No pertinent past surgical history Tobacco Smoking/Tobacco Use Status: Never Passive smoking exposure: No Second hand exposure: No Alcohol Alcohol Intake: current Alcohol intake frequency: holidays/special occasions only Substance Use Substance use: Never Substance use type: does not use Prental History History 0 Para Hx # Term Pregnancies Multiple births Hx # Pregnancies Ectopic pregnancies AB induced Hx Number of Living Children AB spontaneous Vital Signs and Lab Results Vital Signs Most Recent Vital Signs in EMR: Most Recent Vital Signs Temp Pulse Resp BP Pulse Ox 36.2 C L 86 16 130/84 99 01/03/25 09:14 01/03/25 09:14 01/03/25 09:14 01/03/25 09:14 01/03/25 09:14 Point of Care Results Point of Care Results: POC- Test(urine) Negative 01/03/25 09:24 Imaging and Studies Imaging and Studies Study information below may be from another EMR and interpreted by another provider. Please see original notes in EMR for more complete details. EKG Summary: EKG PATIENT NAME: Barb Gonzalez UNIT #: [id number] ORDERING PROVIDER: Sue Ramsey M.D. PRIMARY CARE PROVIDER: WILMER HERNANDEZ NP DATE/TIME OF SERVICE: 04/11/24 165 : 2000 PERFORMING LOCATION: ER APPROVED REPORT Exam: Resting ECG Reason for Exam: chest pain Patient Location: E HR:106 bpm ECG Measurements Heart Rate 106 AXIS ID 129 P 40 QRSd 97 QRS 54 QT 334 T5 QTc 443 Conclusion Sinus tachycardia...rate> [address] segment or T wave abnormalities to suggest occlusive [place] <Electronically signed by Sue Ramsey M.D. in [place]> E-Sign Date: 04/11/24 E-Sign Time: 2304 ADDENDUM APPROVED REPORT Exam: Resting ECG Reason for Exam: chest pain Patient Location: E HR:106 bpm ECG Measurements Heart Rate 106 AXIS ID 129 P 40 QRSd 97 QRS 54 QT 334 T5 QTc 443 Conclusion Sinus tachycardia...rate> [address] segment or T wave abnormalities to suggest occlusive [place] I have reviewed and I agree with the emergency room physician's ECG interpretation. Electronically signed by: <Electronically signed by Grace Jimenez M.D. in [place]> 04/13/24 0824 Cosigned by: Anesthesia Assessment and Plan Anesthesia History Personal History: No History of General Anesthesia Family History: No Family History of Anesthesia Complications Exercise Tolerance Exercise Tolerance: Metabolic Equivalents>4 Pertinent Negatives Pertinent Negatives: No Symptoms of GERD Cardiac & Pulmonary Exam Cardiac Exam: Normal S1/S2 Heart Sounds Pulmonary Exam: Clear Bilateral Breath Sounds Implantable Cardiac Device Does patient have a Pacemaker or an ICD?: No Airway Exam Known Difficult Airway: No Mallampati Class: 2 Mouth Opening: Narrow (< 3cm) Thyromental Distance: Greater than 3 cm Neck Range of Motion: Full ROM Neck Circumference: Normal Teeth Condition: Normal Dentition ASA Classification ASA Score: ASA 2 Emergency Case?: No NPO Status NPO Status: NPO Clears >2 hours, Solids >8 hours Status Status: Negative HCG Anesthesia Plan Resuscitation Status: Full Code Anesthesia Technique: General Anesthesia Airway Planned: Natural Airway Monitors Used: Standard Monitors Preoperative Comments:: Daily GERD until started Omeprazole. Reports resolution of symptoms since started omeprazole. No GERD in last week or today. Patient seeming quite anxious, offered preoperative midazolam. Patients parent at bedside, they discussed and decided to not have preoperative anxiolysis. I did let them know it was an option if she changed her mind.
[2025-01-03 10:04] VITALS: BMI 35.3
--- NOTE | 2025-01-03 10:49 | BOWEL_PTH ---
PATIENT: Barb Gonzalez LOC: [facility] U#:[id number] AGE/SX: 24/F ROOM: RE01/03/[address]: Lani Short : 2000 BED: DIS: 01/03/2025 SPEC #: [id number] RECD: 01/03/25 12:49 STATUS: BELKYS REShameka #: [id number] GIFTY: 01/03/25 10:[address]: Lani Short DEPT: Surgical Specimen RECD BY: Anjana Marroquin ENTERED: 01/03/25 12:50 SP TYPE: Bowel OTHR DR: Yamel Linares, SARIAH Tissues: 1 - BIOPSY BOWEL 2 - BIOPSY BOWEL 3 - BIOPSY BOWEL 4 - BIOPSY BOWEL 5 - BIOPSY BOWEL Procedures: GROSS AND MICRO LEVEL 4 Comments: [id number]
[2025-01-03 11:06] VITALS: BP 112/57; PULSE 75; RESP 16; TEMP 36.4; O2SAT 97
--- NOTE | 2025-01-03 11:07 | W.PM.DSUDISC ---
Date of service: 01/03/25 Discharge Plan Disposition Patient Disposition: Home Condition: Good Discharge Details Reason For Visit: Diarhea and blood in stool Attending Provider: Lani Short Primary Care Provider: Yamel Linares Recommendations for Follow Up Recommended tests to be ordered by follow up provider: Follow up pathology Home Meds and New Rx's Prescriptions: Continued sertraline 100 mg tablet 100 mg PO DAILY Qty: 90 3RF L norgest/e.estradiol-e.estrad 0.15 mg-30 mcg (84)/10 mcg (7) tablets,dose pack,3 month 1 tab PO Q24H Qty: 182 4RF Rx Instructions: Take continuously by skipping the placebo pills and starting the next pack right away. oxybutynin chloride 5 mg tablet extended release 24hr 10 mg PO DAILY omeprazole 20 mg capsule,delayed release(DR/EC) 20 mg PO DAILY Qty: 90 3RF Discontinued bisacodyl 5 mg tablet,delayed release (DR/EC) 5 mg PO ONCE Qty: 4 0RF Rx Instructions: Per Colonoscopy bowel prep instructions polyethylene glycol 3350 17 gram/dose powder 238 g PO ONCE Qty: 238 0RF Rx Instructions: For Colonoscopy bowel prep, as directed by office Discharge Instructions Additional Instructions: Your colonoscopy went well today. There was some inflammation identified of the terminal ileum and rectum. Biopsies were taken throughout the colon. We will follow up with you once these biopsies return. If you have any questions or concerns please contact the general surgery office. 1. If tolerated, consume a soft, low fiber diet for 1-2 days. [address] Do not drive, drink alcohol, operate machinery, make critical decisions, or do activities that require coordination or balance for 24 hours. 3. Because air was put into your colon during the procedure, expelling air from your rectum (passing gas or farting) is normal. 4. You may not have a bowel movement for 1-3 days because of the colonoscopy prep. This is normal. 5. Go directly to the emergency room if you notice any of the following: Develop chills (warm to touch), or if you have a thermometer and your temperature is above 101 Difficulty breathing or difficultly swallowing Persistent vomiting Severe abdominal pain, other than gas cramps Severe chest pain Black, tarry stools Any bleeding – exceeding one tablespoon 6. Call your physician if the site where your intravenous was started becomes red, swollen, painful, and warm to touch. 7. Your physician has reviewed your pre-procedure medications. Please continue to take those medications as previously ordered. You will be given specific information/education regarding any changes to your medications before leaving. Stand Alone Forms: Portal Information Activity:: Activity as Tolerated Diet:: As Tolerated Discharge Orders Discharge Orders: Discharge Order (Routine); Ordered 01/03/25 Ordered By: Lani Short
--- NOTE | 2025-01-03 11:10 | W.COLOREPORT ---
Date of service: 01/03/25 Time of Service: 11:12 Colonoscopy Report Date of procedure: 01/03/25 Pre-op diagnosis general: Diarrhea, blood in stool Post-op diagnosis procedure note: same Procedure: Colonoscopy with biopsies Surgeon: Lani Short Anesthesia Type: General:No Airway Estimated blood loss (mL): 1 Pathology: other (Biopsy TI, ascending, transverse, descending, rectum ) Complications: None Disposition: PACU Indications: Patient is a 24 yo female who was evaluated in clinic for diarrhea, abdominal pain and blood in stool. Prep: Miralax/Dulcolax Procedure Start Time: 10:40 Procedure End Time: 10:59 Retraction Time: 14 Findings: Inflammation and cobblestone appearance of terminal ileum. Inflammation of rectum biopsied. Biopsies taken throughout the colon in ascending, transverse, descending and rectum. Procedure Description: Informed consent was obtained. The patient was taken to the endoscopy suite and placed in the left lateral decubitus position. After adequate intravenous sedation, digital rectal exam was performed, which was normal. A colonoscope was inserted into the rectum and easily negotiated to the cecum. The ileocecal valve and appendiceal orifice were identified. The terminal ileum was entered and had evidence of inflammation and cobblestone appearance. A biopsy of the terminal ileum was obtained. The entire colonic mucosa was then carefully circumferentially inspected upon slow withdrawal of the scope. The colonic mucosa appeared normal and cold forcep biopsies were taken in the ascending, transverse and descending colon. There was an area of patchy erythema in the rectum which was biopsies. Retroflexion in the rectum was unremarkable. The patient tolerated the procedure well with no complications. Postoperatively, the patient was transferred to the recovery room in stable condition. Turner Bowel Prep Turner Bowel Prep Right Colon: 3 Left Colon: 3 Transverse Colon: 3 Total Score: 9
--- NOTE | 2025-01-03 11:14 | W.ANESPOSTOP ---
Postoperative Evaluation Date, Time and Location Date Performed: 01/03/25 Time Performed: 11:08 Patient Location: Day Surgery Unit Vital Signs Most Recent Imported Vital Signs: Most Recent Vital Signs Temp Pulse Resp BP Pulse Ox 36.4 C L 75 16 112/57 L 97 01/03/25 11:06 01/03/25 11:06 01/03/25 11:06 01/03/25 11:06 01/03/25 11:06 Pain Score Most Recent Pain Score: Most Recent Pain Score Pain Level 0 01/03/25 11:06 Assessment Mental Status: Awake (Alert & Oriented to Patient Baseline) Airway and Respiratory Function: Patent airway with normal (patient baseline) respiratory exam Cardiovascular Function: Hemodynamically Stable Hydration Status: Adequately Hydrated Nausea & Vomiting: No Nausea or Vomiting Pain: Pt. Denies Any Pain Peripheral Nerve Block: Patient did not receive a nerve block
[2025-01-03 11:31] VITALS: BP 120/79; PULSE 89; RESP 16; TEMP 36.8; O2SAT 98
--- NOTE | 2025-01-03 12:31 | W.ANESPOSTOP ---
Postoperative Evaluation Date, Time and Location Date Performed: 01/03/25 Time Performed: 11:08 Patient Location: Day Surgery Unit Vital Signs Most Recent Imported Vital Signs: Most Recent Vital Signs Temp Pulse Resp BP Pulse Ox 36.8 C 89 16 120/79 98 01/03/25 11:31 01/03/25 11:31 01/03/25 11:31 01/03/25 11:31 01/03/25 11:31 Most Recent Vital Signs Temp Pulse Resp BP Pulse Ox 36.4 C L 75 16 112/57 L 97 01/03/25 11:06 01/03/25 11:06 01/03/25 11:06 01/03/25 11:06 01/03/25 11:06 Pain Score Most Recent Pain Score: Most Recent Pain Score Pain Level 0 01/03/25 11:31 Assessment Mental Status: Awake (Alert & Oriented to Patient Baseline) Airway and Respiratory Function: Patent airway with normal (patient baseline) respiratory exam Cardiovascular Function: Hemodynamically Stable Hydration Status: Adequately Hydrated Nausea & Vomiting: No Nausea or Vomiting Pain: Pt. Denies Any Pain Peripheral Nerve Block: Patient did not receive a nerve block
== END 2025-01-03 11:50 | disposition home or self-care (01) ==
PROVIDERS: PCP Nurse Practitioner Family; Visit Provider Student in an Organized Health Care Education/Training Program
PROC: 0DJD8ZZ Inspection of Lower Intestinal Tract, Via Natural or Artificial Opening Endoscopic (ICD-10-PCS; CPT 45378; principal; 2025-01-03 09:45)
DX: R19.7 Diarrhea, unspecified (principal); K62.5 Hemorrhage of anus and rectum
CPT/HCPCS: 45380; 81025; 88305; J2003; J2704

== ENCOUNTER 2025-01-30 16:41 | Outpatient (REF) | payer OTHER, SELFPAY ==
[2025-02-01 12:17] LABS: Chlamydia Result Negative (Negative); GC Result Negative (Negative)
== END 2025-01-30 16:42 | disposition home or self-care (01) ==
LOC: LBN 16:41
PROVIDERS: PCP Nurse Practitioner Family; Visit Provider Obstetrics & Gynecology
DX: Z11.3 Encounter for screening for infections with a predominantly sexual mode of transmission (principal)
CPT/HCPCS: 87491; 87591; 87480; 87510; 87660

== ENCOUNTER 2025-02-07 10:50 | Outpatient (CLI) | payer OTHER, SELFPAY ==
[2025-02-07 10:50] LABS: Abs Immature Grans 0.04 10^3/uL (0.0-0.06); HCT 43.6 % (36.0-46.0); HGB 15.1 g/dL (11.2-15.7); Immature Grans % 0.4 %; MCH 28.8 pg (27.0-33.0); MCHC 34.6 % (32.0-36.0); MCV 83 fL (80-95); MPV 9.7 fL (8.0-11.0); Platelet Count 362 10^3/uL (130-400); RBC 5.24 10^6/uL (3.93-5.22); RDW 12.4 % (11.7-14.6); RDW-SD 37.7 fL; WBC 9.59 10^3/uL (4.4-10.8)
[2025-02-07 11:11] LABS: C-Reactive Protein 1.86 mg/dL (<=0.50)
[2025-02-07 11:12] LABS: ALT 20 U/L (10-49); AST 20 U/L (<34); Albumin 4.4 g/dL (3.2-5.0); Alkaline Phosphatase 90 U/L (46-116); Anion Gap 9.3 mmol/L (3-11); BUN 13 mg/dL (9-23); Bilirubin, Total 0.3 mg/dL (0.2-1.2); CO2 23.7 mmol/L (20.0-31.0); Calcium 8.7 mg/dL (8.3-10.6); Chloride 107 mmol/L (98-107); Glucose 94 mg/dL (74-106); Potassium 3.9 mmol/L (3.5-5.1); Sodium 140 mmol/L (136-145); Total Protein 7.6 g/dL (5.7-8.2)
[2025-02-07 11:13] LABS: ESR 7 mm/hr (0-20)
[2025-02-07 11:16] LABS: TSH (W/Ref FT4) 1.75 uIU/mL (0.55-4.78)
== END 2025-02-07 10:51 | disposition home or self-care (01) ==
LOC: LBO 10:50
PROVIDERS: PCP Nurse Practitioner Family; Visit Provider Nurse Practitioner Family
DX: R19.7 Diarrhea, unspecified (principal)
CPT/HCPCS: 36415; 80053; 82784; 85652; 84443; 85025; 86140

== ENCOUNTER 2025-02-08 11:58 | Outpatient (REF) | payer OTHER, SELFPAY ==
[2025-02-09 20:21] LABS: Campylobacter PCR Negative (Negative); Shiga Toxin PCR Positive (Negative); Shigella/Enteroinvasive Ecoli Negative (Negative)
== END 2025-02-08 11:59 | disposition home or self-care (01) ==
LOC: LBN 11:58
PROVIDERS: PCP Nurse Practitioner Family; Visit Provider Nurse Practitioner Family
DX: R19.7 Diarrhea, unspecified (principal)
CPT/HCPCS: 87015; 87177; 87209; 87269; 87272; 87505; 83993